=== PATIENT | male | born 1940 | race Caucasian/White ===

== ENCOUNTER → 2017-06-22 | Outpatient (CLI) | payer OTHER, BC ==
[~2017-06-22] VITALS: Ht 177.8 cm; Wt 95.3 kg
[~2017-06-22] MED LIST: ALEVE220 MG PO; ASPIR 8181 MG PO; CARAFATE 1 GM TA1 G1 PO; CENTRUM SILVER1 EAC2 PO; DULERA 200 MCG/13 GM INH; FLOMAX0.4 MG PO; K-DUR 20 MEQ T20 MEQ PO; PROTONIX40 M1 PO; SIMVASTATIN40 MG PO; VALSARTAN-HCTZ1 EAC1 PO
--- NOTE | ~2017-06-22 | S ---
[facility] [address] [place] [address] SURGICAL PATH RPT PROCEDURE Name: MARCELL CAMACHO Room #: REG [facility] M..#: [id number] Admission: 06/22/17 Date of : 36 Discharge: Report #: [id number] Path Case #: [id number] PATHOLOGY REPORT COLLECTION DATE: 06/22/2017 RECEIVED DATE: 06/22/2017 SUBMITTING PHYS: Dr. Quique Us OTHER PHYS: Dr. Cm Mckeon SPECIMEN(S) RECEIVED: A.Gastritis B.Distal esophagus * * * * * * * * * * * * FINAL DIAGNOSIS: A. "Gastritis", biopsy: - Gastric antral-type mucosa with mild reactive changes, mild predominantly chronic inflammation and focal intestinal type epithelium; no dysplasia seen. (See comment) - Negative H. pylori immunohistochemical stain (block A1); control reacted appropriately. B. "Distal esophagus", biopsy: - Esophageal squamous mucosa and gastric cardia-type mucosa with reactive changes and mild acute and chronic inflammation; no convincing intestinal metaplasia and no dysplasia seen. (See comment) (CLW:caryn; 06/23/2017) COMMENT: Within specimen A, the focal intestinal type epithelium may be focal intestinal metaplasia in the setting of mild chronic gastritis or a transition to small bowel/duodenal mucosa. Clinical and endoscopic correlation is required. Within specimen B, a rare possible goblet cell is noted; however, no convincing intestinal metaplasia is identified. Again, clinical and endoscopic correlation is required. (CLW:caryn; 06/23/2017) PATHOLOGIST: Mahogany Riley M.D. REPORT ELECTRONICALLY SIGNED BY: Mahogany Riley M.D. DATE/TIME: 06/23/2017 17:53 * * * * * * * * * * * * GROSS PATHOLOGY: A. Received in formalin labeled, "Marcell Camacho BX gastritis," are 3 fragments of gill soft tissue measuring between 0.3 x 0.2 x 0.1 cm and 0.4 x 0.3 x 0.2 cm. They are entirely submitted in cassette A1. [facility] [place] [place] [address] SURGICAL PATH RPT PROCEDURE Name: MARCELL CAMACHO S Room #: [facility].#: [id number] Admission: 06/22/17 Date of : 36 Discharge: Report #: [id number] Path Case #: [id number] B. The specimen is received in formalin, labeled "Marcell Camacho BX distal esophagus," and consists of 2 fragments of gill soft tissue measuring 0.5 x 0.3 x 0.1 cm and 0.4 x 0.3 x 0.1 cm. They are entirely submitted in cassette B1. (SDY; 06/22/2017) CLINICAL HISTORY: Dysphagia Gastritis Rule out Gonzalez's INITIAL CPT CODE(S): A; 96127, 99100 B; 71595 Professional services performed by [facility] at [address] , [place] [address] Technical services performed by [facility] at [address] [place] [address], [address], [place] [address]. [facility] [address] [place] [address] PHONE: [phone] DIRECTOR: Alex Nolen M.D. * * * END OF REPORT * * *
--- NOTE | ~2017-06-22 | P ---
[facility] [place] [address] [place] [address] PROCEDURE REPORT Name: MARCELL ABRAHAM Room #: REG [facility].#: [id number] Admission: 06/22/17 Attend Phys: Quique Maloney Discharge: Date of : 36 Report #: [id number] THIS REPORT FOR: //name// CC: Cm Coulter MD [facility] DATE OF SERVICE: 06/22/2017 PROCEDURE PERFORMED: Upper endoscopy with biopsies and dilation. HISTORY OF PRESENT ILLNESS: The patient is a 76-year-old male with a history of gastroesophageal reflux disease and recently switched him to Protonix. He reports no further heartburn symptoms. He does report dysphagia at times. He has had previous dilations in the past. DESCRIPTION OF PROCEDURE: The risks and benefits of the procedure were explained to the patient those risks including but not limited to bleeding, perforation and the risk of sedation. He understood these risks and gave informed consent. Sedation was given using propofol per anesthesia. Next using a standard Olympus upper endoscope, the scope was placed in the patient's mouth and advanced under direct vision through the esophagus, stomach and into the second portion of the duodenum. Larynx was normal in appearance. The esophagus was normal throughout in the upper and midesophagus. In the distal esophagus, possible short segment of Gonzalez's was noted. Biopsies were obtained. There was no evidence of stricture or esophagitis. Overall, the gastric mucosa was normal in the fundus and body. There were a few small erosions in the gastric antrum with mild gastritis. Biopsies were obtained to rule out H. pylori. The pylorus was normal and patent. The duodenal bulb, first and second portion were all normal. The scope was then brought back up into the patient's stomach and a Savary guidewire was inserted through the scope leaving the guidewire in place as the scope was then withdrawn. Next a 48-Uzbek Savary dilation of the esophagus was performed without difficulty. The wire and dilator were removed. The scope was reintroduced into the patient's stomach. There was no evidence of mucosal tear after dilation. The scope was then withdrawn and the procedure terminated. The patient tolerated the procedure well. IMPRESSION: 1. 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 2. Mild gastritis with a few erosions in the gastric antrum. 3. Otherwise normal upper endoscopy. RECOMMENDATIONS: 1. Await biopsy results. 2. Continue daily Protonix. [address] [address] PROCEDURE REPORT Name: LEIGHMARCELL Grisel Room #: REG [facility] Jordin#: [id number] Admission: 06/22/17 Attend Phys: Quique Maloney Discharge: Date of : 36 Report #: [id number] 3. Observe the patient post-dilation. Thank you for allowing me to participate in his care. <ELECTRONICALLY SIGNED> By: Quique Us MD 06/22/17 0922 [id number] [id number] Quique Us, /janet
== END ==
LOC: GI 07:30
DX: K29.50 Unspecified chronic gastritis without bleeding (principal); K22.8 Other specified diseases of esophagus; I10 Essential (primary) hypertension; E78.5 Hyperlipidemia, unspecified; J43.9 Emphysema, unspecified; F17.210 Nicotine dependence, cigarettes, uncomplicated; Z98.41 Cataract extraction status, right eye; Z98.42 Cataract extraction status, left eye; Z98.890 Other specified postprocedural states; Z79.899 Other long term (current) drug therapy; Z79.82 Long term (current) use of aspirin
CPT/HCPCS: 62110; 62900

== ENCOUNTER → 2019-02-25 | Outpatient (CLI) | payer OTHER ==
[~2019-02-25] VITALS: Ht 177.8 cm; Wt 97.5 kg
[~2019-02-25] MED LIST changes: +AMIODARONE HCL400 MG PO; +COMBIVENT RESPIM4 GM INH; +NEURONTIN100 MG PO; +PRADAXA150 MG PO; +RASAGILINE MESYL1 MG PO
[2019-02-25 07:48] VITALS: BP 135/59
== END | disposition home or self-care (01) ==
LOC: CATH 07:04
DX: I87.322 Chronic venous hypertension (idiopathic) with inflammation of left lower extremity (principal); I87.2 Venous insufficiency (chronic) (peripheral); R22.9 Localized swelling, mass and lump, unspecified; M79.605 Pain in left leg; I10 Essential (primary) hypertension; E78.5 Hyperlipidemia, unspecified; K21.9 Gastro-esophageal reflux disease without esophagitis; J44.9 Chronic obstructive pulmonary disease, unspecified; I73.9 Peripheral vascular disease, unspecified; Z98.890 Other specified postprocedural states; Z79.899 Other long term (current) drug therapy; Z82.49 Family history of ischemic heart disease and other diseases of the circulatory system; Z98.41 Cataract extraction status, right eye; Z98.42 Cataract extraction status, left eye; Z87.891 Personal history of nicotine dependence

== ENCOUNTER → 2019-05-31 | Outpatient (CLI) | payer OTHER | LOC: SJCVC 13:36 | DX: R94.31 Abnormal electrocardiogram [ECG] [EKG] (principal); I21.29 ST elevation (STEMI) myocardial infarction involving other sites; I44.0 Atrioventricular block, first degree; I45.2 Bifascicular block; I48.0 Paroxysmal atrial fibrillation; I71.2 Thoracic aortic aneurysm, without rupture; J44.9 Chronic obstructive pulmonary disease, unspecified; D68.59 Other primary thrombophilia; E78.00 Pure hypercholesterolemia, unspecified; I87.2 Venous insufficiency (chronic) (peripheral); I35.0 Nonrheumatic aortic (valve) stenosis; I12.9 Hypertensive chronic kidney disease with stage 1 through stage 4 chronic kidney disease, or unspecified chronic kidney disease; N18.9 Chronic kidney disease, unspecified; K21.9 Gastro-esophageal reflux disease without esophagitis; Z87.891 Personal history of nicotine dependence; Z79.899 Other long term (current) drug therapy ==

== ENCOUNTER → 2020-01-17 | Outpatient (CLI) | payer OTHER | LOC: SJCVCIMAG 06-02 12:32 | PROVIDERS: ATTEND Nuclear Medicine Nuclear Cardiology | DX: I45.2 Bifascicular block (principal); I44.0 Atrioventricular block, first degree; I35.1 Nonrheumatic aortic (valve) insufficiency; R94.31 Abnormal electrocardiogram [ECG] [EKG]; I87.2 Venous insufficiency (chronic) (peripheral); E78.00 Pure hypercholesterolemia, unspecified; I48.0 Paroxysmal atrial fibrillation; I12.9 Hypertensive chronic kidney disease with stage 1 through stage 4 chronic kidney disease, or unspecified chronic kidney disease; N18.9 Chronic kidney disease, unspecified; Z79.899 Other long term (current) drug therapy; Z87.891 Personal history of nicotine dependence ==

== ENCOUNTER → 2020-03-05 | Outpatient (CLI) | payer OTHER | LOC: SJCVCIMAG 07:47 | PROVIDERS: ATTEND Internal Medicine Cardiovascular Disease | DX: I45.2 Bifascicular block (principal); I44.0 Atrioventricular block, first degree; I48.91 Unspecified atrial fibrillation; I25.10 Atherosclerotic heart disease of native coronary artery without angina pectoris; E78.5 Hyperlipidemia, unspecified; I10 Essential (primary) hypertension; Z79.899 Other long term (current) drug therapy; Z87.891 Personal history of nicotine dependence ==

== ENCOUNTER → 2020-10-30 | Outpatient (CLI) | payer OTHER | LOC: SJCVC 10:24 | PROVIDERS: ATTEND Internal Medicine Cardiovascular Disease | DX: R94.31 Abnormal electrocardiogram [ECG] [EKG] (principal); I45.2 Bifascicular block; I48.0 Paroxysmal atrial fibrillation; I35.0 Nonrheumatic aortic (valve) stenosis; I10 Essential (primary) hypertension; E78.00 Pure hypercholesterolemia, unspecified; I87.2 Venous insufficiency (chronic) (peripheral); M54.12 Radiculopathy, cervical region; R01.1 Cardiac murmur, unspecified; I12.9 Hypertensive chronic kidney disease with stage 1 through stage 4 chronic kidney disease, or unspecified chronic kidney disease; N18.9 Chronic kidney disease, unspecified; N52.9 Male erectile dysfunction, unspecified; G20 Parkinson's disease; K21.9 Gastro-esophageal reflux disease without esophagitis; K58.9 Irritable bowel syndrome, unspecified; M54.30 Sciatica, unspecified side; I70.0 Atherosclerosis of aorta; Z87.891 Personal history of nicotine dependence; Z79.899 Other long term (current) drug therapy ==

== ENCOUNTER → 2021-05-14 | Outpatient (CLI) | payer MEDICARE | LOC: SJCVCIMAG 10:02 | PROVIDERS: ATTEND Internal Medicine Cardiovascular Disease | DX: I08.0 Rheumatic disorders of both mitral and aortic valves (principal); I48.91 Unspecified atrial fibrillation; J44.9 Chronic obstructive pulmonary disease, unspecified; R25.1 Tremor, unspecified; I25.10 Atherosclerotic heart disease of native coronary artery without angina pectoris; I71.2 Thoracic aortic aneurysm, without rupture; I87.2 Venous insufficiency (chronic) (peripheral); K21.9 Gastro-esophageal reflux disease without esophagitis; E78.00 Pure hypercholesterolemia, unspecified; I10 Essential (primary) hypertension; D68.59 Other primary thrombophilia; Z87.891 Personal history of nicotine dependence; Z72.89 Other problems related to lifestyle; Z79.899 Other long term (current) drug therapy; Z82.49 Family history of ischemic heart disease and other diseases of the circulatory system ==